=== PATIENT | female | born 1980 | race Caucasian/White ===

== ENCOUNTER 2016-09-15 13:35 | Emergency (ER) | payer OTHER ==
[~2016-09-15 13:35] MED LIST: ADVAIR 2501 DISK W/D IH; ADVAIR INHALER; ALBUTEROL; ALBUTEROL INHALER; ALBUTEROL INHALER INH; ALBUTEROL17 GM INH; ALIGN4 MG; AMOXICILLIN500 M; AMOXICILLIN500 M PO; ATIVAN1 M2 PO; AUGMENTIN 875-11 TAB PO; B-COMPLEX/C T400 MCG; BACTRIM DS TAB1 EAC2 PO; BACTRIM DS TABL1 TAB PO; BACTRIM DS1 TAB PO; CIPRO250 MG PO; CIPRO500 MG PO; CYTOMEL5 MC1 PO; DARVOCET-N 1001 EA PO; DARVOCET-N 1001 TAB; DARVOCET-N 1001 TAB PO; DIFLUCAN150 MG PO; E-400 C-500 &1 EACH PO; E-400400 UNIT PO; EPIPEN 2-P0.3 MG/0.3 IM; FIBERCON625 MG; FOLIC ACID0.4 MG; HYDROCODON-ACE1 EA16 PO; IRON1 TA1; LEXAPRO10 M2 PO; LEXAPRO10 MG PO; LORCET PLUS 7.1 EACH PO; LORTAB 5/500 TA1 TAB; MACROBID 100 M100 MG; MOTRIN600 MG PO; MULTIVITAMIN1 TAB PO; NORCO 5-325 TA1 EACH PO; NORCO 5/325 TAB1 TAB PO; NORCO 5/3251 TAB PO; OXYCODONE 5 MG PO; OXYCODONE HCL5 M1 PO; OXYCODONE/APAP PO; PERCOCET 5-3251 EACH PO; PERCOCET 5/3251 TAB PO; PRENATAL VIT; PRENATAL1 TAB; PROAIR HFA8.5 GM IH; PYRIDIUM200 M1 PO; ROBAXIN750 MG/TAB PO; ROBITUSSIN-AC5 ML PO; SKELAXIN800 MG PO; SYNTHROID100 MC1 PO; SYNTHROID25 MC1 PO; SYNTHROID25 MCG PO; SYNTHROID50 MC1 PO; SYNTHROID75 MC1 PO; TRIMETHOPRIM100 M1 PO; TYLENOL WITH C1 EACH PO; ULTRAM50 MG PO; VITAMIN C PO; VITAMIN C500 M2 PO; VITAMIN D1000 UNI3 PO; VITAMIN D1000 UNIT PO; VITAMIN D2000 UNIT PO; VIVELLE-DOT1 EAC1 TD; ZANAFLEX4 M2 PO; ZITHROMAX250MG Z-PAK PO; ZOFRAN ODT4 MG/UDTAB PO; ZOFRAN4 M1 PO; ZOFRAN4 M2 PO
[2016-09-15 14:13] LABS: CREATININE 1.08 mg/dl (0.67-1.17); eGFR VALUE FOR BLACK 75 mL/Min
[2016-09-15 14:24] LABS: URINE BILIRUBIN NEGATIVE (NEG); URINE BLOOD LARGE (NEG); URINE GLUCOSE (UA) NEGATIVE (NEG); URINE KETONE NEGATIVE (NEG); URINE LEUKOCYTE ESTERASE POSITIVE (NEG); URINE NITRITE NEGATIVE (NEG); URINE PROTEIN SMALL (NEG)
[2016-09-15 14:25] LABS: URINE APPEARANCE HAZY; URINE COLOR YELLOW
[2016-09-15 14:27] LABS: URINE WBC 100-120 /[HPF] (0-5)
[2016-09-15 14:28] LABS: URINE RBC 80-100 /[HPF] (0-5)
[2016-09-15 14:29] LABS: URINE BACTERIA 1+
[2016-09-15 15:02] LABS: BASO % 0.4 % (0-2); BASO ABSOLUTE COUNT 0.1 tho/cmm (0.0-0.2); EOS % 1.4 % (0-7); EOSINOPHIL ABSOLUTE COUNT 0.2 tho/cmm (0.0-0.7); HCT-HEMATOCRIT 39.4 % (34.0-49.0); HGB-HEMOGLOBIN 13.3 gm/dl (12.0-15.5); IMMATURE GRANULOCYTES ABSOLUTE 0.04 tho/cmm (0-0.03); IMMATURE GRANULOCYTES PERCENT 0.3 % (0-0.3); LYMPH % 26.6 % (20-45); LYMPH ABSOLUTE COUNT 3.2 tho/cmm (0.8-4.5); MCH (MEAN CORPUSCULAR HGB) 28.1 pg (28.0-32.0); MCHC MEAN CORPUSCULAR HGB CONC 33.8 % (32.0-36.0); MCV (MEAN CELL VOLUME) 83.3 fl (82.0-96.0); MEAN PLATELET VOLUME 9.7 cmc (9.4-12.4); MONO % 5.4 % (0-12); MONOCYTE ABSOLUTE COUNT 0.7 tho/cmm (0.0-1.2); NEUTROPHIL ABSOLUTE COUNT 7.9 tho/cmm (1.6-8.0); NEUTROPHIL-AUTOMATED 7.9 tho/cmm (1.6-8.0); NEUTROPHILS % 65.9 % (40-80); PLATELET COUNT 285 tho/cmm (150-450); RED BLOOD COUNT 4.73 mil/cmm (4.00-5.20); RED CELL DISTRIBUTION WIDTH 13.6 % (12.4-16.4); WHITE BLOOD COUNT 11.9 tho/cmm (4.0-10.0)
[2016-09-15] MEDS ORDERED: ZOFRAN4 M2 PO (15:27)
[2016-09-15] MEDS ORDERED: PERCOCET 5-3251 EACH PO (15:27)
[2016-09-15] MEDS ORDERED: CIPRO500 M2 PO (15:27)
[2016-11-07] MEDS ORDERED: CYTOMEL5 MC1 PO (14:19)
[2016-11-07] MEDS ORDERED: MACROBID 100 M100 M1 PO (16:30)
[2016-11-07] MEDS ORDERED: ZOFRAN ODT4 MG PO (17:37)
[2016-11-07] MEDS ORDERED: KEFLEX500 M4 PO (17:37)
== END 2016-09-15 18:04 ==
LOC: EDMED 13:35
PROVIDERS: Emergency Medicine
DX: N12 Tubulo-interstitial nephritis, not specified as acute or chronic (principal); Z87.442 Personal history of urinary calculi; E03.9 Hypothyroidism, unspecified; F41.9 Anxiety disorder, unspecified; Z90.49 Acquired absence of other specified parts of digestive tract; Z90.89 Acquired absence of other organs; Z98.890 Other specified postprocedural states; Z90.710 Acquired absence of both cervix and uterus; Z79.890 Hormone replacement therapy; Z79.899 Other long term (current) drug therapy
CPT/HCPCS: J0696; J2270; J2405; J7030